=== PATIENT | male | born 1990 | race African-American/Black ===

== ENCOUNTER 2022-02-23 07:52 | Inpatient (IN) ==
[2022-02-23] MEDS ORDERED: ONDANSETRON 4 MG/2 ML VIAL ONE (07:54)
[2022-02-23] MEDS ORDERED: HYDROmorphone 1 MG/1 ML SYRINGE ONE ×2 (07:54→09:19)
[2022-02-23] MEDS ORDERED: ONDANSETRON 4 MG/2 ML VIAL IV STA (07:55)
[2022-02-23] MEDS ORDERED: LACTATED RINGERS 1,000 ML IV STA (07:55)
[2022-02-23] MEDS ORDERED: HYDROmorphone 1 MG/1 ML SYRINGE IV STA ×2 (07:55→09:23)
[2022-02-23 08:07] LABS: Basophils # 0.1 10*3/uL (0.0-0.2); Basophils % 0.6 % (0.0-0.8); Eosinophils # 1.3 10*3/uL (0.0-0.87); Eosinophils % 8.8 % (0.00-10.9); Hematocrit 43.7 VOL% (42.0-52.0); Hemoglobin 14.3 GM/DL (14.0-18.0); Immature Granulocytes % 0.7 %; Lymphocytes # 3.1 10*3/uL (1.4-4.0); Lymphocytes % 21.7 % (21.2-54.2); Mean Corpuscular HGB Conc 32.7 GM/DL (32-36); Mean Corpuscular Volume 87.1 FL (87-102); Monocytes # 1.1 10*3/uL (0.11-0.8); Monocytes % 7.5 % (1.7-12.7); Neutrophils % 60.7 % (38.7-73.9); Platelet Count 298 T/CUMM (130-400); Red Blood Count 5.02 MC/CUMM (3.8-5.5); Red Cell Distribution Width 14.3 % (9.3-17.3); White Blood Count 14.2 T/CUMM (4-12)
[2022-02-23 08:18] LABS: PT Patient Result 10.7 SECS (10.1-12.1); Partial Thromboplastin Time 23.6 SECS (23.7-32.9)
[2022-02-23 08:43] LABS: Alanine Aminotransferase 31 U/L (16-61); Albumin 3.4 G/DL (3.4-5.0); Alkaline Phosphatase 90 U/L (45-117); Aspartate Amino Transferase 41 U/L (0-37); Bilirubin,Total < 0.39 MG/DL (0.20-1.00); Blood Urea Nitrogen 14 MG/DL (7-18); Calcium 9.2 MG/DL (8.5-10.1); Carbon Dioxide 28 MMOL/L (21-32); Chloride 107 MMOL/L (98-107); Glucose 145 MG/DL (74-106); Osmolality,Calculated 280.5 MOS/KG (273-304); Sodium 139 MMOL/L (136-145); Total Protein 8.2 G/DL (6.4-8.2)
[2022-02-23 09:19] LABS: Bacteria,Urine Occasional /HPF (Few); Glucose,Urine (UA) Negative (Negative); Ketones,Urine Negative (Negative); Mucus,Urine Occasional /LPF (Occasional); Nitrite,Urine Negative (Negative); Protein,Urine 30 mg/dL (Negative); RBC,Urine 15-20 /HPF (0-4); Squamous Epithelial Cell,Urine Occasional /HPF (0-10); Urine Appearance Clear (Clear); Urine Color Yellow (Yellow); Urine Specific Gravity 1.015 (1.001-1.035)
[2022-02-23 09:20] LABS: Bilirubin,Urine Negative (Negative); Blood, Urine Small mg/dL (Negative); Urine Urobilinogen 0.2 eU/dL (<2.0)
[2022-02-23 09:28] LABS: Barbiturates Screen,Urine Negative (Negative); Benzodiazepines Screen,Urine Negative (Negative); Cannabinoid Screen,Urine Negative (Negative); Opiate Screen,Urine Positive (Negative); Phencyclidine Screen,Urine Negative (Negative)
[2022-02-23] MEDS ORDERED: ceFAZolin 2,000 MG/50 ML DUPLEX IV ONE (09:39)
[2022-02-23] MEDS ORDERED: fentaNYL 100 MCG/2 ML VIAL ONE (10:08)
[2022-02-23] MEDS ORDERED: ACETAMINOPHEN 325 MG TABLET PO PRN (10:18)
[2022-02-23] MEDS ORDERED: ONDANSETRON 4 MG/2 ML VIAL IV PRN ×2 (10:18→13:36)
[2022-02-23] MEDS ORDERED: HYDROmorphone 1 MG/1 ML SYRINGE IV PRN ×2 (10:18→13:36)
[2022-02-23] MEDS ORDERED: ALBUTEROL/IPRATROPIUM 3 ML NEB RESP TX PRN (10:18)
[2022-02-23] MEDS ORDERED: BISACODYL 5 MG TABLET PO PRN (10:18)
[2022-02-23] MEDS ORDERED: KETAMINE 500 MG/10 ML VIAL ONE (11:45)
[2022-02-23] MEDS ORDERED: LACTATED RINGERS 1,000 ML IV SCH (12:00)
[2022-02-23] MEDS ORDERED: DESFLURANE 1 UNIT/15 MINUTE INH ONE (12:14)
[2022-02-23] MEDS ORDERED: ROCURONIUM 50 MG/5 ML VIAL IV ONE (12:14)
[2022-02-23] MEDS ORDERED: SUCCINYLCHOLINE 200 MG/10 ML VIAL ONE (12:14)
[2022-02-23] MEDS ORDERED: propofoL 200 MG/20 ML VIAL IV ONE (12:14)
[2022-02-23] MEDS ORDERED: LIDOCAINE 2% 5 ML VIAL ONE (12:14)
[2022-02-23] MEDS ORDERED: PHENYLEPHRINE 1 MG/10 ML SYRINGE IV ONE ×2 (12:26)
[2022-02-23] MEDS ORDERED: PHENYLEPHRINE 10 MG/1 ML VIAL IV ONE (12:37)
[2022-02-23] MEDS ORDERED: NEOSTIGMINE 10 MG/10 ML VIAL ONE (13:32)
[2022-02-23] MEDS ORDERED: GLYCOPYRROLATE 0.4 MG/2 ML VIAL ONE (13:32)
[2022-02-23] MEDS ORDERED: diphenhydrAMINE 50 MG/1 ML VIAL IV PRN (13:36)
[2022-02-23] MEDS ORDERED: PROMETHAZINE INJ 25 MG in SODIUM CHLORIDE 0.9% 50 ML IV PRN (13:36)
[2022-02-23] MEDS ORDERED: MEPERIDINE 25 MG/1 ML VIAL IV PRN (13:36)
[2022-02-23] MEDS ORDERED: MAGNESIUM HYDROXIDE SUSP 30 ML UDCUP PO PRN (13:43)
[2022-02-23] MEDS: HYDROmorphone 1 MG/1 ML SYRINGE IV PRN ×3 (14:36→23:09)
[2022-02-23] MEDS: KETOROLAC 30 MG/1 ML VIAL IV PRN (16:50)
[2022-02-23] MEDS: LACTATED RINGERS 1,000 ML IV SCH (20:08)
[2022-02-23] MEDS: ceFAZolin 2,000 MG/50 ML DUPLEX IV SCH (20:09)
[2022-02-24] MEDS: KETOROLAC 30 MG/1 ML VIAL IV PRN ×2 (01:42→09:03)
[2022-02-24] MEDS: ceFAZolin 2,000 MG/50 ML DUPLEX IV SCH (03:28)
[2022-02-24] MEDS: LACTATED RINGERS 1,000 ML IV SCH (03:28)
[2022-02-24] MEDS: HYDROmorphone 1 MG/1 ML SYRINGE IV PRN ×3 (03:31→14:09)
[2022-02-24 04:36] LABS: Basophils % 0.3 % (0.0-0.8); Eosinophils # 0.3 10*3/uL (0.0-0.87); Eosinophils % 2.9 % (0.00-10.9); Hematocrit 33.2 VOL% (42.0-52.0); Hemoglobin 11.1 GM/DL (14.0-18.0); Immature Granulocytes % 0.3 %; Immature Granulocytes Absolute 0.03 #; Lymphocytes # 1.8 10*3/uL (1.4-4.0); Lymphocytes % 18.5 % (21.2-54.2); Mean Corpuscular HGB Conc 33.4 GM/DL (32-36); Mean Corpuscular Volume 85.8 FL (87-102); Mean Platelet Volume 10.1 FL (9.6-12.0); Platelet Count 210 T/CUMM (130-400); Red Blood Count 3.87 MC/CUMM (3.8-5.5); Red Cell Distribution Width 14.2 % (9.3-17.3); White Blood Count 9.9 T/CUMM (4-12)
[2022-02-24 04:59] LABS: Albumin 2.9 G/DL (3.4-5.0); Bilirubin,Total 0.5 MG/DL (0.20-1.00); Calcium 8.1 MG/DL (8.5-10.1); Osmolality,Calculated 273.7 MOS/KG (273-304); Potassium 3.5 MMOL/L (3.5-5.1); Total Protein 6.5 G/DL (6.4-8.2)
[2022-02-24] MEDS ORDERED: FONDAPARINUX 2.5 MG/0.5 ML SYRINGE SUBCUT SCH (08:00)
[2022-02-24] MEDS ORDERED: PANTOPRAZOLE 40 MG TABLET PO SCH (09:00)
[2022-02-24 11:44] VITALS: BP 128/71
== END 2022-02-24 16:10 | disposition home or self-care (01) | DRG 481 ==
LOC: N.ED 07:52 → N.EDINP 10:18 → N.3E 12:25
PROVIDERS: ADMIT Surgery; ATTEND Surgery